=== PATIENT | male | born 1980 | race Two or more races ===

== ENCOUNTER 2018-11-30 21:32 | Emergency (ER) | payer MEDICAID, OTHER ==
[~2018-11-30] VITALS: Ht 167.6 cm; Wt 68.0 kg
--- NOTE | 2018-11-30 21:40 | NUR ---
ED Nurse Note: Pt BIBA for medical clearance, pt under custody. Pt ran through bushes and fence, hitting his head, denies LOC. VSS, police at bedside
[2018-11-30 21:41] VITALS: BP 119/70
[2018-11-30] MEDS ORDERED: Lidocaine 1% MPF 10mg/ml 5ml INJ ONE (21:45)
[2018-11-30] MEDS ORDERED: Neosporin Oint Ud Pkt TOP ONE (21:45)
--- NOTE | 2018-11-30 22:50 | NUR ---
ED Nurse Note: ERMD used 5 sara on medial ventral scalp, pt tolerated well
--- NOTE | 2018-11-30 22:52 | Emergency Room Report ---
History of Present Illness General Chief Complaint: Medical Clearance Source: Patient Present Illness HPI The patient was being pursued by police and ran into a fence and cut his head. No loss of consciousness. Tetanus is up-to-date. Pain is rated 8/10, sharp and slightly burning at the area of the laceration without radiation. He denies any neck pain or other body pain. Patient denies medical problems. Allergies: Coded Allergies: No Known Allergies (Unverified , 04/02/14) Patient History Past Medical History: see triage record Social History: Reports: smoking Social History Narrative In custody Reviewed Nursing Documentation: PMH: Agreed; PSxH: Agreed Nursing Documentation-PMH Past Medical History: No Stated History Review of Systems Constitutional: Denies: fever Eye: Denies: blurred vision Respiratory: Denies: shortness of breath Cardiovascular: Denies: chest pain Gastrointestinal: Denies: abdominal pain Musculoskeletal: Reports: see HPI Skin: Reports: see HPI Neurological: Reports: see HPI Hematologic/Lymphatic: Denies: easy bleeding Physical Exam Vital Signs Date Time Temp Pulse Resp B/P (MAP) Pulse Ox O2 Delivery O2 Flow Rate FiO2 11/30/18 21:27 98.4 120 18 119/70 (86) 98 Room Air Sp02 EP Interpretation: reviewed, normal General Appearance: well appearing, no apparent distress, GCS 15 Head: normocephalic Eyes: bilateral eye normal inspection, bilateral eye PERRL ENT: moist mucus membranes Neck: full range of motion, supple, no bony tend Respiratory: chest non-tender, lungs clear Cardiovascular #1: regular rate, rhythm Cardiovascular #2: 2+ radial (L) Gastrointestinal: normal inspection Musculoskeletal: gait/station normal, normal range of motion, non-tender Neurologic: alert, oriented x3, hand cultivator III-XII nml as tested, motor strength/tone normal, DTRs symmetric, sensory intact, cerebellar normal, normal gait, speech normal Psychiatric: mood/affect normal Skin: laceration - Scalp Procedures Laceration/Wound Repair Laceration/Wound Repair : Consent: Verbal Wound Location: head Wound's Depth, Shape: superficial Wound Length (cm): 3 Wound Explored: clean Irrigated w/ Saline (ccs): 20 Betadine Prep?: Yes Anesthesia: 1% Lidocaine Volume Anesthetic (ccs): 4 Wound Debrided: None Wound Repaired With: sara Layer Closure?: No Sterile Dressing Applied?: No - Neosporin Patient Tolerated: Well Complications: None Medical Decision Making Diagnostic Impression: Primary Impression: Scalp laceration Qualified Codes: S01.01XA - Laceration without foreign body of scalp, initial encounter ER Course Patient sustained a scalp laceration after running from police. There is no loss of consciousness. No imaging is indicated. The patient requires suture repair. He will be given Tylenol. Wound repaired with sara. Discussed wound care with patient. Patient stable for outpatient observation and treatment. Last Vital Signs Date Time Temp Pulse Resp B/P (MAP) Pulse Ox O2 Delivery O2 Flow Rate FiO2 11/30/18 23:00 98.4 88 18 119/70 98 Room Air Status: improved Disposition: D/C TO LAW ENFORCEMENT IN CUST Condition: Improved Scripts Bacitracin (Bacitracin) 28.4 Gm Oint...g. 1 APPLIC TOPIC BID, #14 GM Prov: Joseluis Nickerson MD 11/30/18 Referrals: NOT CHOSEN IPA/,REFERRING (PCP) Joseluis Nickerson MD Nov 30, 2018 22:52
[2018-11-30] MEDS ORDERED: BACITRACIN15 GM TOPIC (22:54)
[2018-11-30 23:00] VITALS: BP 119/70
--- NOTE | 2018-11-30 23:00 | NUR ---
ED Discharge Note: PRESCRIPTIONS AND DISCHARGE PAPERWORK EXPLAINED TO PT. PT VERBALIZES UNDERSTANDING AND ALL QUESTIONS ANSWERED. PRESCRIPTIONS AND DISCHARGE PAPERWORK GIVEN TO PT AND ID WRISTBAND REMOVED. PT WALKED OUT OF ER WITH STEADY GAIT AND ALL BELONGINGS IN CUSTODY OF [employer]
== END 2018-11-30 23:00 ==
LOC: EDBD 21:32 → EMR 21:43
DX: S01.01XA Laceration without foreign body of scalp, initial encounter (principal); F17.200 Nicotine dependence, unspecified, uncomplicated; W22.09XA Striking against other stationary object, initial encounter; Y92.9 Unspecified place or not applicable
CPT/HCPCS: 99283